=== PATIENT | female | born 1965 ===

== ENCOUNTER 2018-08-03 08:10 | Outpatient (CLI) | payer MEDICARE, MEDICAID | END 2018-08-03 08:11 | disposition home or self-care (01) | LOC: C.CTH 08:10 ==

== ENCOUNTER 2018-08-07 19:56 | Emergency (ER) | payer MEDICARE, MEDICAID ==
[2018-08-07 19:56] VITALS: BMI 37.8
--- NOTE | 2018-08-07 20:29 | C.PDOC ---
History Of Present Illness Patient presents to the ED c/o left leg pain. Patient is a dialysis patient, goes on Tuesday, Tuesday and Tuesday she states having dialysis today. Patient has a left transverse oblique fracture through the distal fibula. Patient denies fever, chills, rash, CP, SOB, weakness, numbness. Time Seen by Provider: 08/07/18 20:29 Chief Complaint (Nursing): Lower Extremity Problem/Injury History Per: Patient History/Exam Limitations: no limitations Onset/Duration Of Symptoms: Days Current Symptoms Are (Timing): Still Present Severity: Moderate Pain Scale Rating Of: 4 Recent travel outside of the [place]: No Additional History Per: Patient - Knee Description Of Injury: Other (fracture) Currently Unable To: Bend Or Move Past Medical History Reviewed: Historical Data, Nursing Documentation, Vital Signs Vital Signs: Last Vital Signs Temp 98.9 F 08/07/18 20:19 Pulse 84 08/07/18 20:19 Resp 22 08/07/18 20:19 BP 165/81 H 08/07/18 20:19 Pulse Ox 99 08/07/18 20:19 - Medical History PMH: Anemia (blood transfusion), Arthritis, Asthma, CAD, CHF, COPD, Depression, Diabetes, Emphysema, Fractures (r 9th rib fx), HTN, Hypercholesterolemia, Hyperlipidemia, Peripheral Edema (ble +1 edema), Chronic Kidney Disease Surgical History: CABG, Coronary Stent Denies: Pacemaker - [facility] Procedures (09/09/17) ASSISTANCE WITH RESPIRATORY VENTILATION, 24-96 HRS, CPAP (05/22/16) ASSISTANCE WITH RESPIRATORY VENTILATION, <24 HRS, CPAP (09/10/15) BATHING/SHOWERING TECHNIQUES TREATMENT (07/05/16) DILATION OF 1 COR ART WITH DRUG-ELUT INTRA, PERC APPROACH (06/23/16) DRAINAGE OF R FOOT SUBCU/FASCIA, OPEN APPROACH, DIAGN (07/15/15) DRESSING TECHNIQUES TREATMENT (07/05/16) EXCISION OF R FOOT SUBCU/FASCIA, OPEN APPROACH (07/15/15) EXCISION OF RIGHT FOOT SKIN, EXTERNAL APPROACH (09/10/15) FLUOROSCOPY L UP EXTREM VEIN W L OSM CONTRAST, GUIDANCE (07/15/15) GAIT TRAINING/AMBULAT TREATMENT USING ASSIST EQUIPMENT (07/05/16) GROOMING/PERSONAL HYGIENE TREATMENT (07/05/16) INSERTION OF INFUSION DEV INTO SUP VENA CAVA, PERC APPROACH (07/15/15) INTRODUCE OF OTH ANTI-INFECT INTO PERIPH VEIN, PERC APPROACH (09/09/17) LEFT HEART CARDIAC CATH (07/18/13) LT HEART ANGIOCARDIOGRAM (07/18/13) MEASURE OF CARDIAC SAMPL & PRESSURE, L HEART, PERC APPROACH (06/23/16) PACKED CELL TRANSFUSION (07/18/13) PLAIN RADIOGRAPHY OF LEFT HEART USING OTHER CONTRAST (06/23/16) PLAIN RADIOGRAPHY OF MULT COR ART USING OTH CONTRAST (06/23/16) THERAPEUTIC EXERCISE TREATMENT OF MUSCULOSK WHOLE (07/05/16) ULTRASONOGRAPHY OF LEFT UPPER EXTREMITY VEINS, GUIDANCE (07/15/15) Family History: States: Unknown Family Hx, CAD - Social History Hx Tobacco Use: No Hx Alcohol Use: No Hx Substance Use: No - Immunization History Hx Tetanus Toxoid Vaccination: Yes Hx Influenza Vaccination: Yes Hx Pneumococcal Vaccination: No Review Of Systems Constitutional: Negative for: Fever, Chills Cardiovascular: Negative for: Chest Pain Respiratory: Negative for: Shortness of Breath Gastrointestinal: Negative for: Nausea, Vomiting, Abdominal Pain Musculoskeletal: Positive for: Leg Pain Skin: Negative for: Rash Neurological: Negative for: Weakness, Numbness Physical Exam - Physical Exam Appears: Non-toxic, No Acute Distress Skin: Warm, Dry Head: Normacephalic Eye(s): bilateral: Normal Inspection Neck: Supple Chest: Symmetrical, Other (left chest port cath) Cardiovascular: Rhythm Regular Respiratory: No Rales, No Rhonchi, No Wheezing Gastrointestinal/Abdominal: Soft, No Tenderness, No Guarding, No Rebound Back: No CVA Tenderness Extremity: Pedal Edema (left leg), Capillary Refill (< 2 seconds), Other (left leg externally rotated) Extremity: Left: Unable To Bear Weight Pulses: Left Dorsalis Pedis: Normal, Right Dorsalis Pedis: Normal Neurological/Psych: Oriented x3, Normal Speech, Normal Cognition Gait: Unable To Assess ED Course And Treatment O2 Sat by Pulse Oximetry: 99 (ON RA) Pulse Ox Interpretation: Normal Progress Note: Plan: - EKG. - Labs. Patient refuses any blood work. States she had it this am at [facility]. Disposition Discussed With : Sunny Johnson Comment: accepted the pt on his service and took over the care at 9:17PM Doctor Will See Patient In The: Hospital Counseled Patient/Family Regarding: Studies Performed, Diagnosis - Disposition Disposition: HOSPITALIZED Disposition Time: 20:29 Condition: FAIR Forms: [facility] (Yoruba) - POA Present On Arrival: Falls Or Trauma - Clinical Impression Clinical Impression: Fracture of left tibia and fibula, ESRD (end stage renal disease) on dialysis - Scribe Statement The provider has reviewed the documentation as recorded by the Scribe Bola Jeffery All medical record entries made by the Scribe were at my direction and personally dictated by me. I have reviewed the chart and agree that the record accurately reflects my personal performance of the history, physical exam, medical decision making, and the department course for this patient. I have also personally directed, reviewed, and agree with the discharge instructions and disposition. Decision To Admit - Pt Status Changed To: Hospital Disposition Of: Observation - . Bed Request Type: Regular Admitting Physician: Sunny Johnson Patient Diagnosis: Fracture of left tibia and fibula, ESRD (end stage renal disease) on dialysis
[2018-08-08 01:20] VITALS: BP 153/86; PULSE 86; RESP 17; TEMP 98; O2SAT 99
== END 2018-08-08 01:14 | disposition left against medical advice (07) ==
LOC: C.ER 19:56 → C.9E 21:15 → UNDOADMOB 21:15 → UNDODISOB 21:38 → C.9E 08-08 00:41 → C.6T 08-08 00:41
DX: S82.202A Unspecified fracture of shaft of left tibia, initial encounter for closed fracture (principal); S82.402A Unspecified fracture of shaft of left fibula, initial encounter for closed fracture; X58.XXXA Exposure to other specified factors, initial encounter; I12.0 Hypertensive chronic kidney disease with stage 5 chronic kidney disease or end stage renal disease; N18.6 End stage renal disease; Z99.2 Dependence on renal dialysis; I25.10 Atherosclerotic heart disease of native coronary artery without angina pectoris; E78.5 Hyperlipidemia, unspecified; E78.00 Pure hypercholesterolemia, unspecified; E11.9 Type 2 diabetes mellitus without complications; M19.90 Unspecified osteoarthritis, unspecified site

== ENCOUNTER 2018-08-08 13:29 | Emergency (ER) | payer MEDICARE, MEDICAID ==
[2018-08-08 13:30] VITALS: BMI 37.8
[2018-08-08 14:20] VITALS: TEMP 98.2
--- NOTE | 2018-08-08 15:57 | RAD ---
Date of service: 08/08/2018 PROCEDURE: Left Knee Radiographs. HISTORY: Pain. COMPARISON: None. TECHNIQUE: 2 views obtained. FINDINGS: BONES: Osteopenia.. No fracture. JOINTS: Mild osteoarthritis. JOINT EFFUSION: None. OTHER FINDINGS: Atherosclerotic vascular calcifications present. IMPRESSION: No fracture or lytic lesion. Mild osteoarthrosis. Extensive Atherosclerotic vascular calcifications present.
--- NOTE | 2018-08-08 16:03 | RAD ---
Date of service: 08/08/2018 PROCEDURE: Left Ankle Radiographs. HISTORY: fall/fx COMPARISON: Correlation is made with the additional images including the left ankle-the left tib fib x-ray exam A CT of the left lower extremity is also noted. TECHNIQUE: 3 views obtained. FINDINGS: BONES: A horizontal medial malleolar fracture with approximately a 2 mm separation of the fractured ends is present. Oblique fracture through the distal fibular metaphysis is noted. Callus formation over this lateral fibular fracture site. At minimum subacute the basis is inferred. Acute on chronic pathology is not excluded. Clinical correlation with the timing of the fall is advised. This oblique fibular fracture extends into the ankle joint. No gross posterior malleolar fracture noted. Dorsal talar and dorsal navicular bony excrescence. Inferior calcaneal spurring noted JOINTS: Anterior tibiotalar and talonavicular osteoarthritis. Ankle mortise maintained. Talar dome intact SOFT TISSUES: Extensive Atherosclerotic vascular calcifications present. OTHER FINDINGS: None. IMPRESSION: Biomet we older fractures-these appear at minimum subacute given callus formation fracture lines persist incomplete healing inferred. Intra-articular extension noted. Osseous hypertrophic changes dorsum talus and navicular Extensive atherosclerotic vascular disease
--- NOTE | 2018-08-08 16:11 | RAD ---
Date of service: 08/08/2018 PROCEDURE: Radiographs of the left tibia and fibula. HISTORY: fall/ fx COMPARISON: CT lower extremity 08/03/2018. Correlation made with the right ankle same-day x-ray image as well.. TECHNIQUE: Frontal and lateral views obtained. 2 views obtained. FINDINGS: BONES: The oblique nondisplaced subacute appearing fracture with callus formation and intra-articular extension is hree noted. There is faint horizontal medial malleolar fracture with apparent 2 mm separation of the fracture ends. Precise timing of the fractures is un known-however callus formation convey some element of chronicity-along lateral and posterior fibular fracture end. Dorsal osseous hypertrophy talus and navicular. Inferior calcaneal spur. JOINT SPACES: Unremarkable. OTHER FINDINGS: Extent Atherosclerotic vascular calcifications present. IMPRESSION: Five malleolar fracture with intra-articular extension callus noted at the fibular aspect at minimum subacute the timing is inferred. Correlate clinically Other findings as above.
--- NOTE | 2018-08-08 16:15 | C.PDOC ---
History Of Present Illness 52 y/o female with a PMHx of stroke in 06/2018, with resulting left hemiparesis, presents today for evaluation of persistent left ankle pain. Patient is currently in rehab and fell off of her wheelchair a couple weeks ago, landing on the left ankle. Patient sustained a fracture of the left distal fibula. Yesterday patient came here and had CT of the extremity. Case was discussed with Dr. Villaseñor. Patient returns to the ED today complaining of the same pain, but no swelling or erythema. She denies any headaches, fever, chills, nausea, or vomiting. Time Seen by Provider: 08/08/18 14:18 Chief Complaint (Nursing): Lower Extremity Problem/Injury History Per: Patient History/Exam Limitations: no limitations Onset/Duration Of Symptoms: Days Current Symptoms Are (Timing): Still Present Past Medical History Reviewed: Historical Data, Nursing Documentation, Vital Signs Vital Signs: Last Vital Signs Temp 98.2 F 08/08/18 13:38 Pulse 70 08/08/18 13:38 Resp 18 08/08/18 13:38 BP 176/101 H 08/08/18 13:38 Pulse Ox 100 08/08/18 13:38 Primary Care Provider: Angela Araujo Medical History PMH: Anemia, Arthritis, Asthma, CAD, CHF, COPD, Depression, Diabetes, Emphysema, Fractures (r 9th rib fx), HTN, Hypercholesterolemia, Hyperlipidemia, Peripheral Edema, End Stage Renal Disease, Chronic Kidney Disease Other PMH: Stroke w/ left hemiparesis Surgical History: CABG, Coronary Stent Denies: Pacemaker - [facility] Procedures (09/09/17) ASSISTANCE WITH RESPIRATORY VENTILATION, 24-96 HRS, CPAP (05/22/16) ASSISTANCE WITH RESPIRATORY VENTILATION, <24 HRS, CPAP (09/10/15) BATHING/SHOWERING TECHNIQUES TREATMENT (07/05/16) DILATION OF 1 COR ART WITH DRUG-ELUT INTRA, PERC APPROACH (06/23/16) DRAINAGE OF R FOOT SUBCU/FASCIA, OPEN APPROACH, DIAGN (07/15/15) DRESSING TECHNIQUES TREATMENT (07/05/16) EXCISION OF R FOOT SUBCU/FASCIA, OPEN APPROACH (07/15/15) EXCISION OF RIGHT FOOT SKIN, EXTERNAL APPROACH (09/10/15) FLUOROSCOPY L UP EXTREM VEIN W L OSM CONTRAST, GUIDANCE (07/15/15) GAIT TRAINING/AMBULAT TREATMENT USING ASSIST EQUIPMENT (07/05/16) GROOMING/PERSONAL HYGIENE TREATMENT (07/05/16) INSERTION OF INFUSION DEV INTO SUP VENA CAVA, PERC APPROACH (07/15/15) INTRODUCE OF OTH ANTI-INFECT INTO PERIPH VEIN, PERC APPROACH (09/09/17) LEFT HEART CARDIAC CATH (07/18/13) LT HEART ANGIOCARDIOGRAM (07/18/13) MEASURE OF CARDIAC SAMPL & PRESSURE, L HEART, PERC APPROACH (06/23/16) PACKED CELL TRANSFUSION (07/18/13) PLAIN RADIOGRAPHY OF LEFT HEART USING OTHER CONTRAST (06/23/16) PLAIN RADIOGRAPHY OF MULT COR ART USING OTH CONTRAST (06/23/16) THERAPEUTIC EXERCISE TREATMENT OF MUSCULOSK WHOLE (07/05/16) ULTRASONOGRAPHY OF LEFT UPPER EXTREMITY VEINS, GUIDANCE (07/15/15) Family History: States: CAD - Social History Hx Tobacco Use: No Hx Alcohol Use: No Hx Substance Use: No - Immunization History Hx Tetanus Toxoid Vaccination: Yes Hx Influenza Vaccination: Yes Hx Pneumococcal Vaccination: No Review Of Systems Except As Marked, All Systems Reviewed And Found Negative. Constitutional: Negative for: Fever, Chills Cardiovascular: Negative for: Chest Pain Respiratory: Negative for: Shortness of Breath Gastrointestinal: Negative for: Nausea, Vomiting Musculoskeletal: Positive for: Foot Pain (left ankle) Skin: Negative for: Rash, Lesions Neurological: Negative for: Headache Physical Exam - Physical Exam Appears: Non-toxic, No Acute Distress, Other (Awake and alert, Cooperative) Skin: Warm, Dry, No Rash Head: Atraumatic, Normacephalic Eye(s): bilateral: Normal Inspection, PERRL, EOMI Neck: Normal ROM Chest: Symmetrical Cardiovascular: Rhythm Regular, No Murmur Respiratory: Normal Breath Sounds, No Accessory Muscle Use, Other (No respiratory distress) Gastrointestinal/Abdominal: Soft, No Tenderness, No Distention Extremity: Tenderness (+tenderness to left ankle on palpation), Capillary Refill (less than 2 sec), No Swelling, Other (No ecchymosis) Pulses: Left Dorsalis Pedis: Normal, Right Dorsalis Pedis: Normal Neurological/Psych: Normal Speech, Other (Left hemiparesis) ED Course And Treatment O2 Sat by Pulse Oximetry: 100 (RA) Pulse Ox Interpretation: Normal - Other Rad L Knee XR X-Ray: Read By Radiologist Interpretation: PROCEDURE: Left Knee Radiographs. HISTORY: Pain. COMPARISON: None. TECHNIQUE: 2 views obtained. FINDINGS: BONES: Osteopenia.. No fracture. JOINTS: Mild osteoarthritis. JOINT EFFUSION: None. OTHER FINDINGS: Atherosclerotic vascular calcifications present. IMPRESSION: No fracture or lytic lesion. Mild osteoarthrosis. Extensive Atherosclerotic vascular calcifications present. L Tib/fib XR X-Ray: Read By Radiologist Interpretation: PROCEDURE: Radiographs of the left tibia and fibula. HISTORY: fall/ fx. COMPARISON: CT lower extremity 08/03/2018. Correlation made with the right ankle same-day x-ray image as well.. TECHNIQUE: Frontal and lateral views obtained. 2 views obtained. FINDINGS: BONES: The oblique nondisplaced subacute appearing fracture with callus formation and intra-articular extension is hree noted. There is faint horizontal medial malleolar fracture with apparent 2 mm separation of the fracture ends. Precise timing of the fractures is un known-however callus formation convey some element of chronicity-along lateral and posterior fibular fracture end. Dorsal osseous hypertrophy talus and navicular. Inferior calcaneal spur. JOINT SPACES: Unremarkable. OTHER FINDINGS: Extent Atherosclerotic vascular calcifications present. IMPRESSION: Five malleolar fracture with intra-articular extension callus noted at the fibular aspect at minimum subacute the timing is inferred. Correlate clinically. Other findings as above. L Ankle XR X-Ray: Read By Radiologist Interpretation: PROCEDURE: Left Ankle Radiographs. HISTORY: fall/fx. COMPARISON: Correlation is made with the additional images including the left ankle-the left tib fib x-ray exam. A CT of the left lower extremity is also noted. TECHNIQUE: 3 views obtained. FINDINGS: BONES: A horizontal medial malleolar fracture with approximately a 2 mm separation of the fractured ends is present. Oblique fracture through the distal fibular metaphysis is noted. Callus formation over this lateral fibular fracture site. At minimum subacute the basis is inferred. Acute on chronic pathology is not excluded. Clinical correlation with the timing of the fall is advised. This oblique fibular fracture extends into the ankle joint. No gross posterior malleolar fracture noted. Dorsal talar and dorsal navicular bony excrescence. Inferior calcaneal spurring noted. JOINTS: Anterior tibiotalar and talonavicular osteoarthritis. Ankle mortise maintained. Talar dome intact. SOFT TISSUES: Extensive Atherosclerotic vascular calcifications present. OTHER FINDINGS: None. IMPRESSION: Biomet we older fractures-these appear at minimum subacute given callus formation fracture lines persist incomplete healing inferred. Intra- articular extension noted. Osseous hypertrophic changes dorsum talus and navicular. Extensive atherosclerotic vascular disease Medical Decision Making Medical Decision Making: Plan: X-rays taken of left knee, tib/fib, and ankle. Imaging reviewed. Spoke to pts senior commissions analyst, Dr. Orellana, who advises placing a soft cast and for outpatient follow-up with him in 1 week. Disposition Discussed With Dr.: Volodymyr Orellana Counseled Patient/Family Regarding: Studies Performed, Diagnosis, Need For Followup, Rx Given - Disposition Referrals: Volodymyr Orellana DPM [[facility]] - Disposition: HOME/ ROUTINE Disposition Time: 16:13 Condition: STABLE Prescriptions: Ibuprofen [Motrin] 600 mg PO TID #15 tab Instructions: Fracture (DC) Forms: [facility] (Mongolian), General Discharge Instructions - POA Present On Arrival: None - Clinical Impression Clinical Impression: Fibula fracture - Scribe Statement The provider has reviewed the documentation as recorded by the Jitendra Ozuna Provider Attestation: All medical record entries made by the Heidyibamrik were at my direction and personally dictated by me. I have reviewed the chart and agree that the record accurately reflects my personal performance of the history, physical exam, medical decision making, and the department course for this patient. I have also personally directed, reviewed, and agree with the discharge instructions and disposition.
[2018-08-08 16:19] VITALS: BP 179/86; PULSE 82; RESP 20
[2018-08-08 16:41] VITALS: O2SAT 100
== END 2018-08-08 18:59 | disposition home or self-care (01) ==
LOC: C.ER 13:29
DX: S82.402A Unspecified fracture of shaft of left fibula, initial encounter for closed fracture (principal); W05.0XXA Fall from non-moving wheelchair, initial encounter; Y92.89 Other specified places as the place of occurrence of the external cause; E78.00 Pure hypercholesterolemia, unspecified; I50.9 Heart failure, unspecified; J44.9 Chronic obstructive pulmonary disease, unspecified; I12.0 Hypertensive chronic kidney disease with stage 5 chronic kidney disease or end stage renal disease; N18.6 End stage renal disease; I25.10 Atherosclerotic heart disease of native coronary artery without angina pectoris